=== PATIENT | male | born 1955 | race Caucasian/White ===

== ENCOUNTER → 2016-06-09 | Outpatient (CLI) | payer BC ==
[~2016-06-09] MED LIST: ALPR-411 PO; ASPI81TA28 PO; CHOL100010 PO; CLOP1TAB5 PO; CYAN100T PO; CYCL10TA6 PO; DICL1GEL28 TOP; DOXY100C76 PO; LOSA100T65 PO; LPR25 PO; METF-384 PO; MULT-506 PO; NAPR500T3 PO; NRV/10 PO; NTRGSL/4 UT; OMEG12006 PO; OMEG340C PO; OXYC-57 PO; OXYC1TAB3 PO; TAMS0.4C38 PO; TURM1CAP4 PO; VALA500T60 PO; ZCR40 PO; ZTA10 PO
== END | disposition home or self-care (01) ==
LOC: C.RDSM 10:00
PROVIDERS: ATTEND Physical Medicine & Rehabilitation Sports Medicine
DX: M25.562 Pain in left knee (principal)

== ENCOUNTER → 2016-11-23 | Outpatient (CLI) | payer BC ==
--- NOTE | 2016-11-23 12:21 | DIAGNOSTIC IMAGING REPORT ---
CAROTID ARTERY ULTRASOUND CLINICAL HISTORY: Arteriosclerosis of carotid artery. Status post bilateral carotid and endarterectomies. COMPARISON STUDY: Carotid ultrasound November 18, 2015. TECHNIQUE: Real-time, grayscale, and color Doppler sonography of the carotid and vertebral arteries was performed. Images were viewed in the transverse and longitudinal planes. FINDINGS: There is minimal atherosclerotic plaque. Velocity measurements are listed below. COMMON CAROTID PEAK SYSTOLIC VELOCITY (CM/S): RIGHT 82 LEFT 73 ICA PEAK SYSTOLIC VELOCITY (CM/S): RIGHT 91 LEFT 77 Systolic ratios between the internal to common carotid arteries were normal. Antegrade flow is seen in the vertebral arteries. The external carotid arteries are patent. Blood pressure could not be obtained in this patient. IMPRESSION: No evidence of a hemodynamically significant stenosis. Electronically signed by: Remi Servin M.D. 11/23/2016 12:20 PM Dictated Date/Time: 11/23/2016 12:17 PM
== END | disposition home or self-care (01) ==
LOC: C.ULTRBC 11:22
PROVIDERS: ATTEND Surgery
DX: I65.23 Occlusion and stenosis of bilateral carotid arteries (principal)

== ENCOUNTER 2017-10-04 12:48 | Inpatient (IN) | payer BC, OTHER ==
[~2017-10-04] VITALS: Ht 182.9 cm; Wt 109.3 kg
[~2017-10-04 12:48] MED LIST changes: +NAPR-1231 PO; -NAPR500T3 PO; +OXYC-737 PO; -OXYC1TAB3 PO
[2017-10-04] MEDS ORDERED: SODIUM CHLORIDE 0.9% 500ML 500 ML IV STA (12:59)
[2017-10-04] MEDS ORDERED: ASPIRIN 81 MG CHEW PO STA (12:59)
--- NOTE | 2017-10-04 13:18 | DIAGNOSTIC IMAGING REPORT ---
CHEST ONE VIEW PORTABLE CLINICAL HISTORY: Atypical chest pain COMPARISON STUDY: 04/02/2015 FINDINGS: The heart is borderline enlarged. There are postsurgical changes of midline sternotomy and valvular replacement. There is no failure. There is no focal pulmonary consolidation. There are no pleural effusions.[ IMPRESSION: No active disease in the chest. Electronically signed by: Aurelio Easley M.D. 10/04/2017 1:16 PM Dictated Date/Time: 10/04/2017 1:16 PM
[2017-10-04 14:33] LABS: BASO % 0.4 %; BASO ABS # 0.03 K/uL (0-0.2); EOS % 1.7 %; EOS ABS # 0.12 K/uL (0-0.5); HEMATOCRIT 41.2 % (42-52); HEMOGLOBIN 14.2 g/dL (14.0-18.0); IG# 0.01 K/uL (0.00-0.02); LYMPH % 18.1 %; LYMPH ABS # 1.25 K/uL (1.2-3.4); MEAN CELL VOLUME 89.8 fL (80-100); MEAN CORPUSCULAR HEMOGLOBIN 30.9 pg (25-34); MEAN CORPUSCULAR HGB CONC 34.5 g/dl (32-36); MEAN PLATELET VOLUME 9.5 fL (7.4-10.4); MONO % 7.2 %; NEUT % 72.5 %; NEUT ABS # 4.99 K/uL (1.4-6.5); PLATELET COUNT 207 K/uL (130-400); RED CELL DISTRIBUTION WIDTH CV 13.2 % (11.5-14.5)
[2017-10-04 15:06] LABS: CALCIUM 9.6 mg/dl (8.5-10.1); CKMB 5.5 ng/ml (0.5-3.6); CREATININE 1.01 mg/dl (0.60-1.40); POTASSIUM 3.9 mmol/L (3.5-5.1)
[2017-10-04] MEDS ORDERED: DICLOFENAC SOD 0.1% OPH SOLN 2.5 ML BTL PEG PRN (15:45)
[2017-10-04] MEDS ORDERED: ALPRAZOLAM 0.5 MG TAB PO PRN (15:45)
[2017-10-04] MEDS ORDERED: TAMSULOSIN HCL 0.4 MG CAP PO PRN (15:45)
[2017-10-04] MEDS ORDERED: NITROGLYCERIN 0.4 MG SL PER TAB CHARGE UT PRN (15:45)
[2017-10-04] MEDS ORDERED: POLYETHYLENE (MIRALAX) 17 GM PACK PO PRN (15:45)
[2017-10-04] MEDS ORDERED: MAGNESIUM HYDROXIDE SUSP 30 ML UDC PO PRN (15:45)
[2017-10-04] MEDS ORDERED: CYCLOBENZAPRINE HCL 10 MG TAB PO PRN (15:45)
[2017-10-04] MEDS ORDERED: ACETAMINOPHEN 325 MG TAB PO PRN (15:45)
[2017-10-04] MEDS ORDERED: NITROGLYCERIN 0.4 MG SL PER TAB CHARGE SL PRN (15:45)
[2017-10-04] MEDS ORDERED: ONDANSETRON INJ 2 MG/ML 2 ML VIAL IV PRN (15:45)
[2017-10-04] MEDS ORDERED: ALUMINUM/MAGNESIUM/SIMETH (MAALOX MAX) 30 ML UDC PO PRN (15:45)
[2017-10-04 15:46] LABS: PTT PATIENT 25.4 SECONDS (21.0-31.0)
--- NOTE | 2017-10-04 15:58 | History and Physical ---
History & Physical Date of Service Oct 04, 2017. History & Physical admit #[id number]
--- NOTE | 2017-10-04 16:07 | Progress Note ---
Progress Note Date of Service Oct 04, 2017. Progress Note in addition to dictated H&P paroxysmal afib - sinus now. no chronic anticoagulation - ?contraindicated -- if not would strongly consider given risks. cardiology follows chronically - will defer to their expertise, but definitely would want to consider
[2017-10-04] MEDS ORDERED: GLUCOSE 40% GEL 15 GM TUBE PO PRN (16:15)
[2017-10-04] MEDS ORDERED: DEXTROSE 50% 50 ML SYR IV PRN (16:15)
[2017-10-04] MEDS ORDERED: GLUCOSE 10 TABS/TUBE PO PRN (16:15)
[2017-10-04] MEDS ORDERED: GLUCAGON FOR INJ 1 MG VIAL IM PRN (16:15)
[2017-10-04] MEDS ORDERED: CARBOHYDRATES FOR HYPOGLYCEMIA PO PRN (16:15)
--- NOTE | 2017-10-04 16:45 | HISTORY & PHYSICAL EXAMINATION ---
DATE OF ADMISSION: 10/04/2017 PATIENT #: [id number] CHIEF COMPLAINT: Chest pain. HISTORY OF PRESENT ILLNESS: History is obtained from the patient as well as from Dr. Arellano, his three knife trimmer who saw him earlier today and sent him over. The patient has apparently a longstanding history of vascular disease including coronary artery disease with stenting who noted last night he had chest pain. He actually was due in today for just a routine cardiology followup, but noted last week while he was playing tennis he had a degree of unexpected dyspnea on exertion. Dyspnea resolved within a minute or so; however, was definitely at a lower level of activity than normal. He had not noted any significant change in overall exercise tolerance however. Last night at rest, he had about a 1-hour episode of upper retrosternal chest tightness that had resolved and has since resolved and has not come back. He took alprazolam and sublingual nitro, but then he fell asleep and had no further chest tightness. Initially, the patient wondered if his dyspnea on exertion had something to do with his CPAP mask not working right but he got a new mask and the dyspnea was still there. Again, most importantly his symptoms have resolved since last night. REVIEW OF SYSTEMS: Otherwise negative, except for as above. He is under a significant amount of stress right now due to situations with his son and in fact today has concerns about arranging meeting; his son needs to make it to at 7:00 tonight for which the patient was to be the son's ride. PAST MEDICAL HISTORY: Includes diffuse vascular disease including coronary artery disease status post catheterization and stenting, carotid artery disease status post carotid endarterectomy, diabetes, dyslipidemia. He is apparently intolerant TO LIPITOR, although I do not believe Crestor has been tried. Hypertension, herpes simplex, mitral valve disease status post mitral valve repair, paroxysmal atrial fibrillation, vitamin D deficiency, and apparently obstructive sleep apnea. HOME MEDICATIONS: Include alprazolam, amlodipine, aspirin, Plavix, cyclobenzaprine, losartan, metformin, metoprolol, multivitamin, Naprosyn, nitroglycerin, omega 3 fatty acids, Percocet, simvastatin, turmeric, ubiquinol, valacyclovir p.r.n. cold sores, B12, vitamin D, Voltaren gel, and Zetia. PAST SURGICAL HISTORY: Includes mitral valve repair, carotid endarterectomy, cath and stenting, hernia repair. FAMILY HISTORY: Includes cerebrovascular disease. SOCIAL HISTORY: He is a former smoker. No significant alcohol. He is working. ALLERGIES: LISTED NABILA INHIBITORS, NIACIN, PENICILLINS AND Dr. Arellano noted AN INTOLERANCE TO ATORVASTATIN. PHYSICAL EXAMINATION: VITAL SIGNS: Temperature 37.1, pulse 58, respiratory rate 20, blood pressure 152/93, and 98% on room air. GENERAL: He is awake, alert, oriented x3, pleasant, appears mildly anxious, but otherwise in no acute distress. HEENT: Normocephalic, atraumatic. Mucous membranes are moist. CARDIOVASCULAR: Regular without rubs, murmurs, or gallops. LUNGS: Clear to auscultation bilaterally. No rales, rhonchi, or wheezes. Good effort. ABDOMEN: Soft, nondistended, nontender, no masses or organomegaly. EXTREMITIES: Without cyanosis, clubbing or edema. No calf tenderness. SKIN: Shows no rashes, no pallor or icterus. NEUROLOGIC: Shows cranial nerves II-XII to be grossly intact. Gross motor and sensory intact. MUSCULOSKELETAL: Yields no gross lesions. MENTAL STATUS: Shows good recent and remote recall. Normal mood, although slightly anxious but appears appropriate to the situation. Good judgment and insight. LABS AND DIAGNOSTICS: His EKG shows some pretty significant flipped Ts with a degree of ST depression anteriorly and over to laterally. His chest x-ray shows no active disease. D-dimer of 340. CBC with a white count of 6.9, hemoglobin 14.2, platelets 207. Basic metabolic panel with sodium 138, potassium 3.9, chloride 103, CO2 29, BUN 16, creatinine 1.01, calcium 9.6, glucose 134. CK total of 110 with an MB of 5.5, ratio of 5.0 and a troponin of 0.822. ASSESSMENT AND PLAN: 1. Non-ST elevation myocardial infarction. It appears that this probably happened last night. He is currently symptom free; however, he does have EKG changes and an elevated troponin. We will be admitting him to telemetry with cardiology consult in anticipation of a heart catheterization tomorrow, today urgently if his chest pain returns and have him on a heparin drip, nitro paste, and his home meds which include dual antiplatelets and again anticipate heart catheterization in the a.m. 2. Coronary artery disease. I agree with Dr. Arellano that consideration for switching his simvastatin to rosuvastatin should be undertaken. We will go ahead and do this given that rosuvastatin has better evidence of plaque stabilization and the patient is in the acute setting of an MD. We will check a lipid panel in the morning and follow. In addition to this, would discontinue his anti-inflammatories outside of the Voltaren gel given the concern on inability for vasodilation with prostaglandin inhibition as related to NSAID use, probably have him take Tylenol Arthritis instead as well as the topicals and then continue to titrate his home medications otherwise as appropriate. 3. Stress and anxiety. Continue his home meds in regards to his concern as acute stressor in concern of his son. His cell phone was in his car across the street and given that stress increase the sympathetic output would increase strain on his heart. With his permission, I ran across the street and got his phone thereby alleviating a decent amount of the stress. 4. Carotid artery disease. He is status post endarterectomy. The treatments for his coronary disease will help with this as well. 5. Dyslipidemia, see above. We will check a lipid panel and change him over to Crestor 20, titrate as needed. 6. Type 2 diabetes. We will be holding his metformin in anticipation of the heart catheterization. We will utilize fingersticks supplemental insulin. Check an A1c. Of note, his last A1c was 6.7 in March. 7. Osteoarthritis. See above. Will discontinue his Naprosyn and utilize Tylenol and Voltaren gel instead. 8. Deep venous thrombosis prophylaxis; for now will be anticoagulated on heparin drip. 9. Vitamin D deficiency. The last levels I have on record over several years ago. This probably is followed by his PCP and they bring this up to bring it to attention in case he is due for followup on this as an outpatient. TIANA
[2017-10-04] MEDS ORDERED: HEPARIN SOD (PORCINE) 1000 UNIT/ML 10 ML VIAL ONE (17:03)
[2017-10-04] MEDS ORDERED: HEPARIN SOD 5000 UNIT/0.5 ML CARP ONE (17:06)
[2017-10-04] MEDS: HEPARIN 25,000 UNIT/500ML D5W 500 ML IV SCH (17:21)
[2017-10-04 18:00] VITALS: BP 147/95; PULSE 59; TEMP 36.9; O2SAT 99; Ht 182.9 cm; Wt 109.3 kg
--- NOTE | 2017-10-04 18:00 | EMERGENCY ROOM VISIT NOTE ---
History Report prepared by Beatriz: Sheridan Sheriff Under the Supervision of: Dr. Chad Valadez D.O. First contact with patient: 12:49 Stated Complaint: CARDIAC EVAL History of Present Illness The patient is a 62 year old male who presents to the Emergency Room with complaints of sudden chest pain that occurred last night. He described the chest pain as tightness in his chest, "like when you need to burp but can't". He noted that he took a Xanax and nitroglycerin for his chest pain last night. He stated that the nitroglycerin did help reduce his pain, and he went to sleep soon after. The patient states that he had a biannual check up with his motion picture critic today, who was worried about the patient's symptoms and the changes in an EKG conducted at the clinic. The patient noted that he is not currently in pain, but has noticed an increase in shortness of breath over the past week while playing tennis. He noted that he takes a baby aspirin every morning and Plavix. The patient denies arm pain, jaw pain, nausea, vomiting, current shortness of breath, pain with breathing, calf swelling, coughing up blood, and recent travel. The patient denies history of blood clots. Source of History: patient Onset: last night Position: chest Quality: other (tightness) Timing: other (episode) Modifying Factors (Worsening): other (Nitroglycerin) Associated Symptoms: No SOB, No nausea, No vomiting Note: The patient denies arm pain, jaw pain, pain with breathing, calf swelling, and coughing up blood. Review of Systems See HPI for pertinent positives & negatives. A total of 10 systems reviewed and were otherwise negative. Past Medical & Surgical Medical Problems: (1) Ac Myocardial Infarct,Unspec Site,Subseq Episode (2) Anxiety State Nos (3) Calculus of ureter (4) Cardiac Murmurs Nec (5) Carotid Artery Occlusion W O Cerebral Infarction (6) Carotid stenosis, right (7) Diab Jennifer Wo Compl, Type Ii Or Unspec Type, Not Uncntrld (8) Hypertension Nos (9) NSTEMI (non-ST elevated myocardial infarction) (10) Type 2 diabetes mellitus Surgical Problems: (1) H/O mitral valve repair (2) S/P right coronary artery (RCA) stent placement Family History Cancer Heart disease Hypertension Social History Smoking Status: Former Smoker Marital Status: Housing Status: lives with significant other Occupation Status: retired Current/Historical Medications Scheduled Amlodipine Besylate (Amlodipine Besylate), 10 MG PO QAM Aspirin (Aspirin Ec), 81 MG PO QAM Cholecalciferol (Vitamin D), 1,000 INTER.UNIT PO QAM Clopidogrel Bisulfate (Plavix), 75 MG PO QPM Cyanocobalamin (Vitamin B-12), 100 MCG PO QAM Ezetimibe (Zetia), 10 MG PO QPM Losartan Potassium (Cozaar), 100 MG PO QAM Metformin Hcl (Glucophage), 1,000 MG PO BID Metoprolol Tartrate (Lopressor), 25 MG PO BID Multivitamin (Multivitamin), 1 TAB PO BID Dunlow-3 Fatty Acids (Dunlow 3), 1 CAP PO QAM Dunlow-3 Fatty Acids (Dunlow 3), 2 CAP PO QPM Simvastatin (Simvastatin), 40 MG PO QPM Turmeric (Curcuma Longa) (Turmeric), 500 MG PO BID Scheduled PRN Alprazolam (Alprazolam), 0.5 MG PO BID PRN for Anxiety Cyclobenzaprine Hcl (Flexeril), 10 MG PO BID PRN for spasm Diclofenac Sod (Voltaren 1% Top Gel), 1 APPLN TOP BID PRN for Joint Pain Nitroglycerin (Nitrostat), 0.4 MG UT UD PRN for Chest Pain Oxycodone/Acetaminophen 5MG/325MG (Percocet 5MG/325MG), 1 TABLET PO UD PRN for Pain Tamsulosin Hcl (Flomax), 0.4 MG PO HS PRN for PRN Valacyclovir (Valtrex), 2,000 MG PO Q12 PRN for PRN Allergies Coded Allergies: NABILA Inhibitors (Unverified Allergy, Unknown, PT NOT AWARE OF ALLERGY-FROM MEDICAL RECORS, 10/04/17) Penicillins (Verified Allergy, Unknown, A CHILD, 10/04/17) Niacin (Unverified Adverse Reaction, Unknown, NEEDLES AND PINS ALL OVER, ) Physical Exam Vital Signs Date Time Temp Pulse Resp B/P (MAP) Pulse Ox O2 Delivery O2 Flow Rate FiO2 10/04/17 17:26 55 20 152/75 99 Room Air 10/04/17 15:32 60 16 142/116 Room Air 10/04/17 15:01 58 15 144/105 Room Air 10/04/17 15:01 59 10/04/17 14:46 58 16 161/99 Room Air 10/04/17 14:31 56 12 161/99 Room Air 10/04/17 13:03 57 10/04/17 13:01 58 14 140/87 Room Air 10/04/17 13:00 37.1 58 20 152/93 98 Room Air Physical Exam GENERAL: Sitting up in bed, alert, well appearing, well nourished, no distress, non-toxic EYE EXAM: normal conjunctiva. OROPHARYNX: no exudate, no erythema, lips, buccal mucosa, and tongue normal and mucous membranes are moist NECK: supple, no nuchal rigidity, no adenopathy, non-tender LUNGS: Clear to auscultation. Normal chest wall mechanics HEART: no murmurs, S1 normal and S2 normal ABDOMEN: abdomen soft, non-tender, normo-active bowel sounds, no masses, no rebound or guarding. BACK: Back is symmetrical on inspection and there is no deformity, no midline tenderness, no CVA tenderness. SKIN: no rashes and no bruising UPPER EXTREMITIES: upper extremities are grossly normal. LOWER EXTREMITIES: No pitting edema. NEURO EXAM: Normal sensorium, cranial nerves II-XII grossly intact, normal speech, no gross weakness of arms, no gross weakness of legs. Medical Decision & Procedures ER Provider Diagnostic Interpretation: Radiology results as stated below per my review and the radiologist's interpretation: CHEST ONE VIEW PORTABLE CLINICAL HISTORY: Atypical chest pain COMPARISON STUDY: 04/02/2015 FINDINGS: The heart is borderline enlarged. There are postsurgical changes of midline sternotomy and valvular replacement. There is no failure. There is no focal pulmonary consolidation. There are no pleural effusions.[ IMPRESSION: No active disease in the chest. Electronically signed by: Aurelio Easley M.D. 10/04/2017 1:16 PM Dictated Date/Time: 10/04/2017 1:16 PM Laboratory Results 10/04/17 14:08 Red Blood Count 4.59, Mean Corpuscular Volume 89.8, Mean Corpuscular Hemoglobin 30.9, Mean Corpuscular Hemoglobin Concent 34.5, Mean Platelet Volume 9.5, Neutrophils (%) (Auto) 72.5, Lymphocytes (%) (Auto) 18.1, Monocytes (%) (Auto) 7.2, Eosinophils (%) (Auto) 1.7, Basophils (%) (Auto) 0.4, Neutrophils # (Auto) 4.99, Lymphocytes # (Auto) 1.25, Monocytes # (Auto) 0.50, Eosinophils # (Auto) 0.12, Basophils # (Auto) 0.03 10/04/17 14:08 Test 10/04/17 14:08 White Blood Count 6.90 K/uL (4.8-10.8) Red Blood Count 4.59 M/uL (4.7-6.1) Hemoglobin 14.2 g/dL (14.0-18.0) Hematocrit 41.2 % (42-52) Mean Corpuscular Volume 89.8 fL (80-100) Mean Corpuscular Hemoglobin 30.9 pg (25-34) Mean Corpuscular Hemoglobin Concent 34.5 g/dl (32-36) Platelet Count 207 K/uL (130-400) Mean Platelet Volume 9.5 fL (7.4-10.4) Neutrophils (%) (Auto) 72.5 % Lymphocytes (%) (Auto) 18.1 % Monocytes (%) (Auto) 7.2 % Eosinophils (%) (Auto) 1.7 % Basophils (%) (Auto) 0.4 % Neutrophils # (Auto) 4.99 K/uL (1.4-6.5) Lymphocytes # (Auto) 1.25 K/uL (1.2-3.4) Monocytes # (Auto) 0.50 K/uL (0.11-0.59) Eosinophils # (Auto) 0.12 K/uL (0-0.5) Basophils # (Auto) 0.03 K/uL (0-0.2) RDW Standard Deviation 43.0 fL (36.4-46.3) RDW Coefficient of Variation 13.2 % (11.5-14.5) Immature Granulocyte % (Auto) 0.1 % Immature Granulocyte # (Auto) 0.01 K/uL (0.00-0.02) Prothrombin Time 10.7 SECONDS (9.0-12.0) Prothromb Time International Ratio 1.0 (0.9-1.1) Activated Partial Thromboplast Time 25.4 SECONDS (21.0-31.0) Partial Thromboplastin Ratio 1.0 D-Dimer 340 ug/L FEU (0-500) Anion Gap 6.0 mmol/L (3-11) Est Creatinine Clear Calc Drug Dose 94.5 ml/min Estimated GFR () 90.7 Estimated GFR (Non- 78.2 BUN/Creatinine Ratio 15.4 (10-20) Calcium Level 9.6 mg/dl (8.5-10.1) Total Creatine Kinase 110 U/L (39-308) Creatine Kinase MB 5.5 ng/ml (0.5-3.6) Creatine Kinase MB Ratio 5.0 (0-3.0) Troponin I 0.822 ng/ml (0-0.045) Laboratory results per my review. Medications Administered Medications (Trade) Dose Ordered Sig/Portia Route Start Time Stop Time Status Last Admin Dose Admin Sodium Chloride 500 ml @ 999 mls/hr Q31M STAT IV 10/04/17 12:59 10/04/17 13:29 DC 10/04/17 14:10 999 MLS/HR Aspirin (Aspirin Chew) 324 mg NOW STAT PO 10/04/17 12:59 10/04/17 13:00 DC 10/04/17 13:20 324 MG Heparin Sodium/ Dextrose 500 ml @ 33 mls/hr [id number] IV 10/04/17 16:30 11/03/17 16:29 10/04/17 17:21 33 MLS/HR Heparin Sodium (Porcine) (Heparin Sq 5000 Unit/0.5ml) 10,000 unit STK-MED ONCE .ROUTE 10/04/17 17:06 10/04/17 17:07 DC 10/04/17 17:22 7,000 UNIT ECG Per My Interpretation Indication: chest pain Rate (beats per minute): 60 Rhythm: sinus rhythm Findings: ST depression (anterior and lateral), T-wave inversion (Septal, anterior, and lateral) Comparison ECG Date: 07/18/2014 Change: Flipped T waves and ST depressions are new. ED Course ED COURSE: Vital signs were reviewed and showed bradycardia and situational hypertension. The patients medical record was reviewed The above diagnostic studies were performed and reviewed. ED treatments and interventions as stated above. 1249: The patient was evaluated in room C10. A complete history and physical examination was performed. 1512: I reevaluated the patient. He has no bleeding risk factors. I have started him on a Heparin drip. 1518: Ordered Heparin Sodium (Porcine) 4,000 unit IV, Heparin IV Bolus. Heparin drip was started afterwards. 1519: Upon reevaluation, the patient is resting comfortably. I discussed my findings with the patient and he understands and agrees with the treatment plan. Based on the patients age, coexisting illnesses, exam and lab findings the decision to treat as an inpatient was made. The patient remained stable while under my care. The patient will be evaluated for further management. 1530: I reviewed the patient's case with Dr. Balbina Glass [facility]. He will evaluate the patient for further management. Medical Decision Differential diagnoses includes but is not limited to acute coronary syndrome, myocardial infarction, pericarditis, pulmonary embolus, aortic dissection, pneumonia, pneumothorax, musculoskeletal, shingles, esophageal. Patient is a 62-year-old male that presents the ER for chest pain which occurred last night. Patient was referred in by cardiology for EKG changes. On my evaluation EKG showed flipped T waves with mild ST depressions. Patient was completely pain-free since last night. CBC along with BMP was unremarkable. Troponin was elevated at 0.8. Patient does take Plavix. Patient was given a heparin bolus and placed on a heparin drip. Patient had no bleeding risk factors including no previous brain bleeds, hemoptysis, blood in stool, blood in urine, or recent trauma/surgery. Patient was updated. I did discuss case with the on-call customer program specialist. He will cath him tomorrow morning at 8 AM. Discussed with internal medicine. Patient was monitored closely admitted to internal medicine for an NSTEMI. Medication Reconcilliation Current Medication List: was personally reviewed by me Blood Pressure Screening Patient's blood pressure: Elevated blood pressure Blood pressure disposition: Elevated BP felt to be situational Consults Time Called: 1520 Consulting Physician: Dr. Balbina Glass [facility] Returned Call: 1530 I reviewed the patient's case with Dr. Balbina Glass [facility]. He will evaluate the patient for further management. Impression Primary Impression: NSTEMI (non-ST elevated myocardial infarction) Critical Care I have personally spent 35 minutes of critical care time in the direct management of this patient. This includes bedside care, interpretation of diagnostic studies, and testing, discussion with consultants, patient, and family members, and other required patient management activities. This 35 minutes is in excess of all separately billable procedures. Scribe Attestation The scribe's documentation has been prepared under my direction and personally reviewed by me in its entirety. I confirm that the note above accurately reflects all work, treatment, procedures, and medical decision making performed by me. Departure Information Dispostion Being Evaluated By Hospitalist Referrals Rohan Prakash M.D. (PCP) Forms IMPORTANT VISIT INFORMATION
[2017-10-04] MEDS: INSULIN ASPART 100 UNITS/ML 3 ML PEN SC SCH ×2 (18:30→22:15)
[2017-10-04 19:48] VITALS: BP 154/96; PULSE 64; TEMP 36.7; O2SAT 98
[2017-10-04] MEDS: NITROGLYCERIN 2% OINTMENT 30GM TUBE EXT SCH (20:43)
[2017-10-04] MEDS ORDERED: SIMVASTATIN 40 MG TAB PO SCH (21:00)
[2017-10-04] MEDS ORDERED: TURMERIC 500 MG PO SCH (21:00)
[2017-10-04 21:16] VITALS: BP 135/80; PULSE 60
[2017-10-04] MEDS: OMEGA-3 (PURIFIED FISH OIL) 1 GM CAP PO SCH (22:09)
[2017-10-04] MEDS: CLOPIDOGREL BISULFATE 75 MG TAB PO SCH (22:10)
[2017-10-04] MEDS: EZETIMIBE 10MG TAB PO SCH (22:10)
[2017-10-04] MEDS: METOPROLOL TARTRATE 25 MG TAB PO SCH (22:10)
[2017-10-04] MEDS: ROSUVASTATIN CALCIUM 20 MG TAB PO SCH (22:11)
[2017-10-04] MEDS: MULTIVITAMIN TAB PO SCH (22:15)
[2017-10-04] MEDS ORDERED: NURSING VERBAL MED ORDER ONE (23:30)
[2017-10-04 23:50] LABS: PTT PATIENT 58.4 SECONDS (21.0-31.0)
[2017-10-04 23:52] VITALS: BP 118/68; PULSE 51; TEMP 36.9; O2SAT 96
[2017-10-05] VITALS (16 sets, daily range): BP systolic 108–151; BP diastolic 59–93; PULSE 48–62; TEMP 36.4–36.9; O2SAT 95–98
[2017-10-05] MEDS: NITROGLYCERIN 2% OINTMENT 30GM TUBE EXT SCH ×2 (00:11→06:25)
[2017-10-05 04:24] LABS: PTT PATIENT 56.6 SECONDS (21.0-31.0)
[2017-10-05 06:35] LABS: HEMOGLOBIN A1C 7.6 % (4.5-5.6)
[2017-10-05] MEDS: ASPIRIN 81 MG ECTAB PO SCH (07:33)
[2017-10-05] MEDS: CHOLECALCIFEROL 1000 INTER.UNIT TAB PO SCH (07:33)
[2017-10-05] MEDS: CYANOCOBALAMIN 100 MCG TAB (VIT B-12) PO SCH (07:33)
[2017-10-05] MEDS: AMLODIPINE BESYLATE 5 MG TAB PO SCH (07:34)
[2017-10-05] MEDS: METOPROLOL TARTRATE 25 MG TAB PO SCH ×2 (07:34→20:43)
[2017-10-05] MEDS: OMEGA-3 (PURIFIED FISH OIL) 1 GM CAP PO SCH ×2 (07:34→20:44)
[2017-10-05] MEDS: MULTIVITAMIN TAB PO SCH ×2 (07:34→20:43)
[2017-10-05] MEDS: INSULIN ASPART 100 UNITS/ML 3 ML PEN SC SCH ×4 (07:35→20:44)
[2017-10-05] MEDS: HEPARIN 25,000 UNIT/500ML D5W 500 ML IV SCH (07:39)
[2017-10-05] MEDS ORDERED: MIDAZOLAM HCL 1 MG/ML 2ML VIAL ONE (07:50)
[2017-10-05] MEDS ORDERED: NiCARDipine HCL INJ 2.5 MG/ML 10 ML AMP ONE (07:50)
[2017-10-05] MEDS ORDERED: FENTANYL CITRATE INJ 50 MCG/1 ML 2 ML VIAL ONE (07:50)
[2017-10-05] MEDS ORDERED: HEPARIN SOD (PORCINE) 1000 UNIT/ML 10 ML VIAL ONE ×2 (07:50→09:06)
[2017-10-05] MEDS ORDERED: NITROGLYCERIN/D5W 100MCG/ML 20ML SYR ONE (07:51)
--- NOTE | 2017-10-05 08:03 | Cardiology Follow-Up ---
Subjective Subjective Date of Service: Oct 05, 2017. Pt evaluation today including: conversation w/ patient, physical exam, chart review, lab review, review of studies, review of inpatient medication list Additional Details: No recurrent chest pain overnight. No other new complaints. Review of Systems Constitutional: No fever Respiratory: No cough Cardiac: No chest pain Abdomen: No pain, No nausea Heme: No abnormal bleeding/bruising Skin: No rash Objective Vital Signs Last Vital Signs Documentation Date Time Temp Pulse Resp B/P (MAP) Pulse Ox O2 Delivery O2 Flow Rate FiO2 10/05/17 07:43 62 10/05/17 07:02 36.4 18 135/79 (97) 97 CPAP Physical Exam: General Appearance: no apparent distress ENT: normal ENT inspection Neck: supple, no JVD Respiratory/Chest: chest non-tender, lungs clear, normal breath sounds Cardiovascular: regular rate, rhythm, no edema, no gallop Abdomen: normal bowel sounds, soft Extremities: no pedal edema Neurologic/Psychiatric: alert, normal mood/affect Skin: normal color, warm/dry Assessment and Plan 1. NSTEMI 2. CAD s/p PCI with DESx2 to RCA 2009 3. DM2 4. Dyslipidemia with statin intolerance. 5. Preserved LV function, well-functioning mitral valve repair 6. Hypertension. 7. Carotid artery disease Plan to proceed with cardiac catheterization via right radial artery this morning. Further recs pending findings. Medications: Current Inpatient Medications Medications (Trade) Dose Ordered Sig/Portia Route Start Time Stop Time Status Last Admin Dose Admin Acetaminophen (Tylenol Tab) 650 mg Q4H PRN PO 10/04/17 15:45 11/03/17 15:44 Al Hydrox/Mg Hydrox/Simethicone (Maalox Max Susp) 15 ml Q4H PRN PO 10/04/17 15:45 11/03/17 15:44 Magnesium Hydroxide (Milk Of Magnesia Susp) 30 ml Q12H PRN PO 10/04/17 15:45 11/03/17 15:44 Ondansetron HCl (Zofran Inj) 4 mg Q6H PRN IV 10/04/17 15:45 11/03/17 15:44 Nitroglycerin (Nitrostat Tab) 0.4 mg UD PRN SL 10/04/17 15:45 11/03/17 15:44 Nitroglycerin (Nitroglycerin 2% Oint) 1 inch Q6H EXT 10/04/17 18:00 11/03/17 15:44 10/05/17 06:25 1 INCH Polyethylene (Miralax Powder Packet) 17 gm DAILY PRN PO 10/04/17 15:45 11/03/17 15:44 Alprazolam (Xanax Tab) 0.5 mg BID PRN PO 10/04/17 15:45 11/03/17 15:44 Aspirin (Ecotrin Tab) 81 mg QAM PO 10/05/17 09:00 11/04/17 08:59 10/05/17 07:33 81 MG Cholecalciferol (Vitamin D Tab) 1,000 inter.unit QAM PO 10/05/17 09:00 11/04/17 08:59 10/05/17 07:33 1,000 INTER.UNIT Clopidogrel Bisulfate (plAVix TAB) 75 mg QPM PO 10/04/17 21:00 11/03/17 20:59 10/04/17 22:10 75 MG Cyclobenzaprine HCl (Flexeril Tab) 10 mg BID PRN PO 10/04/17 15:45 11/03/17 15:44 EZETIMIBE (Zetia Tab) 10 mg QPM PO 10/04/17 21:00 11/03/17 20:59 10/04/17 22:10 10 MG Metoprolol Tartrate (Lopressor Tab) 25 mg BID PO 10/04/17 21:00 11/03/17 20:59 10/05/17 07:34 25 MG Multivitamins (Multivitamin Tab) 1 tab BID PO 10/04/17 21:00 11/03/17 20:59 10/05/17 07:34 1 TAB Oxycodone/ Acetaminophen (Percocet 5-325mg Tab) 1 tab QID PRN PO 10/04/17 15:45 10/18/17 15:44 Tamsulosin HCl (Flomax Cap) 0.4 mg HS PRN PO 10/04/17 15:45 11/03/17 15:44 Amlodipine Besylate (Norvasc Tab) 10 mg QAM PO 10/05/17 09:00 11/04/17 08:59 10/05/17 07:34 10 MG Cyanocobalamin (Vitamin B-12 Tab) 100 mcg DAILY PO 10/05/17 09:00 11/04/17 08:59 10/05/17 07:33 100 MCG Fish Oil ([place]-3 (Purified Fish Oil) Cap) 1 gm QAM PO 10/05/17 09:00 11/04/17 08:59 10/05/17 07:34 1 GM Fish Oil ([place]-3 (Purified Fish Oil) Cap) 2 gm QPM PO 10/04/17 21:00 11/03/17 20:59 10/04/17 22:09 2 GM Diclofenac Sodium (Voltaren 1% Top Gel) 1 appln QID PRN EXT 10/04/17 16:00 11/03/17 15:59 Rosuvastatin Calcium (Crestor Tab) 20 mg QPM PO 10/04/17 21:00 11/03/17 20:59 10/04/17 22:11 20 MG Insulin Aspart (novoLOG ASPART) SLIDING SCALE G... ACHS SC 10/04/17 18:30 11/03/17 18:29 10/04/17 22:15 1 UNITS Glucose (Glucose 40% Gel) 15-30 GRAMS 15 GRAMS... UD PRN PO 10/04/17 16:15 11/03/17 16:14 Glucose (Glucose Chew Tab) 4-8 Tablets 4 Tabl... UD PRN PO 10/04/17 16:15 11/03/17 16:14 Dextrose (Dextrose 50% 50ML Syringe) 25-50ML 25ML FOR ... UD PRN IV 10/04/17 16:15 11/03/17 16:14 Glucagon (Glucagon Inj) 1 mg UD PRN IM 10/04/17 16:15 11/03/17 16:14 Carbohydrates (Carbohydrates For Hypoglycemia) 15-30 GRAMS 15 grams if BSG 54-69... UD PRN PO 10/04/17 16:15 11/03/17 16:14 Heparin Sodium/ Dextrose 500 ml @ 33 mls/hr [id number] IV 10/04/17 16:30 11/03/17 16:29 10/05/17 07:39 33 MLS/HR Lab Results: 10/04/17 14:08 Red Blood Count 4.59, Mean Corpuscular Volume 89.8, Mean Corpuscular Hemoglobin 30.9, Mean Corpuscular Hemoglobin Concent 34.5, Mean Platelet Volume 9.5, Neutrophils (%) (Auto) 72.5, Lymphocytes (%) (Auto) 18.1, Monocytes (%) (Auto) 7.2, Eosinophils (%) (Auto) 1.7, Basophils (%) (Auto) 0.4, Neutrophils # (Auto) 4.99, Lymphocytes # (Auto) 1.25, Monocytes # (Auto) 0.50, Eosinophils # (Auto) 0.12, Basophils # (Auto) 0.03 10/04/17 14:08 Test 10/04/17 14:08 10/05/17 03:53 10/05/17 07:32 White Blood Count 6.90 K/uL (4.8-10.8) Red Blood Count 4.59 M/uL (4.7-6.1) Hemoglobin 14.2 g/dL (14.0-18.0) Hematocrit 41.2 % (42-52) Mean Corpuscular Volume 89.8 fL (80-100) Mean Corpuscular Hemoglobin 30.9 pg (25-34) Mean Corpuscular Hemoglobin Concent 34.5 g/dl (32-36) Platelet Count 207 K/uL (130-400) Mean Platelet Volume 9.5 fL (7.4-10.4) Neutrophils (%) (Auto) 72.5 % Lymphocytes (%) (Auto) 18.1 % Monocytes (%) (Auto) 7.2 % Eosinophils (%) (Auto) 1.7 % Basophils (%) (Auto) 0.4 % Neutrophils # (Auto) 4.99 K/uL (1.4-6.5) Lymphocytes # (Auto) 1.25 K/uL (1.2-3.4) Monocytes # (Auto) 0.50 K/uL (0.11-0.59) Eosinophils # (Auto) 0.12 K/uL (0-0.5) Basophils # (Auto) 0.03 K/uL (0-0.2) RDW Standard Deviation 43.0 fL (36.4-46.3) RDW Coefficient of Variation 13.2 % (11.5-14.5) Immature Granulocyte % (Auto) 0.1 % Immature Granulocyte # (Auto) 0.01 K/uL (0.00-0.02) Prothrombin Time 10.7 SECONDS (9.0-12.0) Prothromb Time International Ratio 1.0 (0.9-1.1) D-Dimer 340 ug/L FEU (0-500) Anion Gap 6.0 mmol/L (3-11) Est Creatinine Clear Calc Drug Dose 94.5 ml/min Estimated GFR () 90.7 Estimated GFR (Non- 78.2 BUN/Creatinine Ratio 15.4 (10-20) Estimated Average Glucose 171 mg/dl Hemoglobin A1c 7.6 % (4.5-5.6) Calcium Level 9.6 mg/dl (8.5-10.1) Total Creatine Kinase 110 U/L (39-308) Creatine Kinase MB 5.5 ng/ml (0.5-3.6) Creatine Kinase MB Ratio 5.0 (0-3.0) Activated Partial Thromboplast Time 56.6 SECONDS (21.0-31.0) Partial Thromboplastin Ratio 2.2 Troponin I 0.883 ng/ml (0-0.045) Triglycerides Level 89 mg/dl (0-150) Cholesterol Level 98 mg/dl (0-200) HDL Cholesterol 34 mg/dl LDL Cholesterol, Calculated 46 mg/dl VLDL Cholesterol, Calculated 18 mg/dl Cholesterol/HDL Ratio 2.9 Bedside Glucose 161 mg/dl (70-99)
[2017-10-05] MEDS ORDERED: CLOPIDOGREL BISULFATE 300 MG TAB PO ONE (09:16)
--- NOTE | 2017-10-05 09:19 | Pre Sedation Assessment ---
Pre Sedation Assessment General Date of Sedation: Oct 05, 2017. Vital Signs Past 12 Hours Date Time Temp Pulse Resp B/P (MAP) Pulse Ox O2 Delivery O2 Flow Rate FiO2 10/05/17 08:00 Room Air 10/05/17 07:43 62 10/05/17 07:02 36.4 51 18 135/79 (97) 97 CPAP 10/05/17 03:38 36.5 51 18 108/66 (80) 98 Room Air 10/04/17 23:52 36.9 51 15 118/68 (85) 96 Room Air Review Cardiovascular: regular rate, rhythm, no edema Lungs: chest non-tender, lungs clear Pre-Sedation Airway Assessment Smoking Status: Former Smoker Hx of Sleep Apnea: No Hx of difficult intubation: No Short Thick Neck: Yes Thyro-mental Distance: > 3 Finger Breadths Oral Cavity: Dentures Mallampati Classification: Class II ASA Classification: Class II NPO Status Date of Last Intake of Fluids: Oct 04, 2017 Time of Last Intake of Fluids: 1900 Date of Last Intake of Solids: Oct 04, 2017 Time of Last Intake of Solids: 1899 Procedure Planning Contraindications for Sedation: None Current Medications Reviewed: Yes Notes The planned sedation has been discussed with the patient. Informed Consent was obtained. I have identified the patient, determined the appropriateness of sedation and have assessed the patient immediately prior to the procedure. All medicine(s) and interventions are by my order.
--- NOTE | 2017-10-05 09:19 | Post Sedation Assessment ---
Post Sedation Assessment General Date of Sedation Oct 05, 2017. Vital Signs: Vital Signs Past 12 Hours Date Time Temp Pulse Resp B/P (MAP) Pulse Ox O2 Delivery O2 Flow Rate FiO2 10/05/17 08:00 Room Air 10/05/17 07:43 62 10/05/17 07:02 36.4 51 18 135/79 (97) 97 CPAP 10/05/17 03:38 36.5 51 18 108/66 (80) 98 Room Air 10/04/17 23:52 36.9 51 15 118/68 (85) 96 Room Air Post Procedure Recovery Score Activity: (2) Moves 4 extremities * Respiration: (2) Deep breath/cough Circulation: (2) +/-20% PreAnes Value Consciousness: (2) Fully Awake Oxygen Saturation: (2) > 92% On Room Air Post Anesthesia Score: 10 Discharge Sedation Level of Care: Fast Track Phase II Post Sedation Plan On clinical assessment, the patient appears to have tolerated the sedation without complications. Patient is recovering as anticipated. Patient will continue to be monitored by nursing and may be discharged when sedation discharge criteria are met per below protocol. Upon Completions of procedure and additional 15 minutes continue every 5 minute vital signs and the P.A.R. score; then discharge to a Phase I or Fast Track to Phase II per the following guidelines: * Discharge Patient to appropriate Phase II area if PAR is 8 or greater or return to pre- procedure baseline. The post - procedure orders will be as directed. * If PAR score is less than 8 or not return to pre-procedure baseline then patient will follow Phase I monitoring till PAR is reached for Phase II. The Phase I may be done in procedure room or may call to secure a Phase I area. * If naloxone or flumazenil are used for reversal, hold in Phase I for an additional 60 -120 minutes before discharge to Phase II. Please call the Sedation Physician to re-evaluate and complete post-note for discharge to Phase II area. Do NOT discharge from procedure sedation or Phase 1 until post- sedation evaluation note is complete by procedure /sedation MD Sedation Discharge Instructions to be given to the patient at discharge to home.
--- NOTE | 2017-10-05 09:34 | Cardiac Catheterization ---
Procedure Note Procedure Date Oct 05, 2017. Pre-Procedure Diagnosis Non STEMI AUC Score 8 Post-Procedure Diagnosis Severe CAD, Successful PCI, Normal Intracardiac Pressures Procedure(s) Performed Coronary Angiography, Left Heart Cath, Drug Eluting Stent Teller Coordinator [employer] Receptionist(s) [place] Estimated Blood Loss <15 Medication(s) Clopidogrel, Fentanyl, Heparin, Nicardipine, Nitroglycerin, Versed, Lidocaine 1% Summary of Findings Indication: ACS/High-risk NSTEMI Access: 6Fr right radial artery Catheters: [place], JL3.5; EBU 3.5 guide Findings: LM - 20% mid to distal disease LAD - Large caliber vessel, 95% focal, hazy late-proximal stenosis at bifurcation of 1st diagonal; 30-40% mid segment disease; distal luminal irregularities as wraps around apex. - Large caliber 1st diagonal with 40-50% ostial stenosis. Circumflex - Moderate caliber vessel, gives off large OM1 without significant disease. RCA - Dominant, widely patent proximal and mid segment stents; 30% mid stenosis just distal to proximal stent LVEDP - 15 -- PCI -- Antithrombotic therapy: Heparin, Clopidogrel Procedure: LM cannulated with EBU 3.5 guide BMW wire passed across LAD lesion into distal vessel Prowater wire placed into distal 1st diagonal LAD lesion predilated with 3.0 compliant balloon Ostium of 1st diagonal dilated with 2.5 balloon. Dilated LAD lesion stented with 3.5 x 23 Xience EMMANUEL Diagonal re-wired with environmental science instructor 50 wire Stent post-dilated with 3.75 noncompliant balloon IC vasodilators administered for spasm Post procedure VONNIE 3 flow, stent well expanded with minimal residual stenosis, minimal ostial diagonal stenosis and no apparent cardiac complications. Arterial Closure: TR Band Summary: 1. Severe single vessel coronary artery disease - 95% late-proximal stenosis at bifurcation of 1st diagonal. 2. Borderline intracardiac filling pressure 3. Successful PCI of proximal to mid LAD with single drug-eluting stent (3.5 x 23 Xience; post-dilated with 3.75 NC). 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 Continue dual-antiplatelet therapy for at least 1 year Continue ASCVD risk factor modification Consult cardiac Rehab Hemodynamics Rest Ao: 140/76/102 Final Ao: 124/70/92 LV: 149/15 Recommendations PCI without planned CABG Specimens None Radiation Exposure (mGy) 3959 Contrast (mls) 175 Fluids (cc crystalloids) 113 NSS Drains none Anesthesia moderate Procedural Complication(s) None Disposition PCU ACC Data Cardiac Status Clinical evaluation leading to the procedure CAD Presntation: Non STEMI Anginal Classification: CCS IV Heart Failure: No, NYHA Class: CCS I Cardiogenic Shock w/in 24Hrs: No Cardiac Arrest w/in 24Hrs: No Imaging studies past 6 months: Yes Stress studies past 6 months: No Closure Device Percutaneous Entry Location: Radial Closure Device: Radial Band Recommendations: PCI without planned CABG PCI Indication: PCI for high risk Non-STEMI Lesion Segment Name: proximal LAD Culprit Artery: Yes Stenosis Prior to Rx (%): 95 Chronic Total Occlusion: No IVUS: No FFR: No Pre-Procedure VONNIE Flow: 3 Previously Treated Lesion: No Lesion Complexity: Non-High/Non-C Lesion Length (mm): 18 Thrombus Present: Yes Bifurcation Lesion: Yes Guidewire Across Lesion: Yes Guidewire: Stenosis Post-Procedure (%): 0 Post-Procedure VONNIE Flow: 3 Device(s) Deployed: Yes Intraprocedure Events Significant Dissection: No Perforation: No
[2017-10-05] MEDS ORDERED: SODIUM CHLORIDE 0.9% 1000ML 1,000 ML IV SCH (09:45)
--- NOTE | 2017-10-05 15:22 | ECHOCARDIOGRAM REPORT ---
*NOTICE TO RECEIVING LIBERTARIAN AGENCY This information is strictly Confidential and protected under [place] law. [place] law prohibits you from making any further disclosure of this information unless further disclosure is expressly permitted by the written consent of the person to whom it pertains or is authorized by law. A general authorization for the release of medical or other information is not sufficient for this purpose. Hospital accepts no responsibility if the information is made available to any other person, INCLUDING THE PATIENT. Interpretation Summary * Name: JUN SOTO Study Date: 10/04/2017 03:52 PM BP: 142/116 mmHg * Patient Location: [facility] HR: 66 * : 1955 (M/d/yyyy) Gender: Male Height: 72 in * Age: 62 yrs Ethnicity: [place] Weight: 241 lb * Ordering Physician: Chad Mortensen * Referring Physician: Thai Arellano * Performed By: Zulema Spain RDCS * * Reason For Study: AMI * BSA: 2.3 m2 * -- Conclusions -- * There is mild concentric left ventricular hypertrophy. * Left ventricular systolic function is normal. * There is mild mitral stenosis. * Borderline aortic root dilatation. * Compared to an echocardiogram from 06/2010, there appears to been a mitral valve repair. Procedure Details * A contrast injection of Definity was performed to improve assessment of LV function. * Contrast was injected into an intravenous site in the left arm. * One vial of Definity ultrasound contrast was diluted in normal saline to a total volume of 10 ml. A total of '1' ml of solution was administered during imaging. * Lot # [id number] of Definity utilized for procedure. * Expiration date SEP 23. * The attending nurse who injected the contrast agent was VIJAYA NICOLE. Left Ventricle * The left ventricle is normal in size. * There is mild concentric left ventricular hypertrophy. * Left ventricular systolic function is normal. * Ejection Fraction = 55-60%. * The left ventricular wall motion is normal. Right Ventricle * The right ventricle is normal in size and function. * The right ventricular systolic function is normal as assessed by tricuspid annular plane systolic excursion (TAPSE) (normal >1.5 cm). Atria * The left atrial size is normal. * Right atrial size is normal. Mitral Valve * The mitral valve is grossly normal. * There is mild mitral stenosis. * Significant mitral regurgitation is absent. * An annuloplasty ring is noted in the mitral position. Tricuspid Valve * The tricuspid valve is not well visualized, but is grossly normal. * Significant tricuspid regurgitation is absent. Aortic Valve * The aortic valve is normal in structure and function. * No hemodynamically significant valvular aortic stenosis. * There is no significant aortic regurgitation. Pulmonic Valve * The pulmonic valve is not well visualized. Great Vessels * Borderline aortic root dilatation. Pericardium/Pleural * There is no pericardial effusion. MMode 2D Measurements and Calculations IVSd 1.6 cm IVSs 2.3 cm LVIDd 4.7 cm LVIDs 3.3 cm LVPWd 1.4 cm LVPWs 1.9 cm IVS/LVPW 1.1 FS 30.2 % EDV(Teich) 103.1 ml ESV(Teich) 43.8 ml EF(Teich) 57.5 % EDV(cubed) 104.7 ml ESV(cubed) 35.6 ml EF(cubed) 66.0 % % IVS thick 43.8 % % LVPW thick 36.9 % LV mass(C)d 293.3 grams LV mass(C)dI 127.2 grams/m\S\2 LV mass(C)s 320.2 grams LV mass(C)sI 138.8 grams/m\S\2 SV(Teich) 59.3 ml SI(Teich) 25.7 ml/m\S\2 SV(cubed) 69.2 ml SI(cubed) 30.0 ml/m\S\2 Ao root diam 4.1 cm Ao root area 13.4 cm\S\2 LA dimension 3.7 cm LA/Ao 0.89 LVAd ap4 40.2 cm\S\2 LVLd ap4 9.3 cm EDV(MOD-sp4) 145.2 ml EDV(sp4-el) 147.3 ml LVAs ap4 22.6 cm\S\2 LVLs ap4 7.8 cm ESV(MOD-sp4) 53.5 ml ESV(sp4-el) 55.5 ml EF(MOD-sp4) 63.2 % EF(sp4-el) 62.4 % LVAd ap2 31.9 cm\S\2 LVLd ap2 8.9 cm EDV(MOD-sp2) 90.9 ml EDV(sp2-el) 96.9 ml LVAs ap2 18.8 cm\S\2 LVLs ap2 7.8 cm ESV(MOD-sp2) 39.2 ml ESV(sp2-el) 38.9 ml EF(MOD-sp2) 56.9 % EF(sp2-el) 59.9 % LVLd %diff -4.46 % EDV(MOD-bp) 115.5 ml LVLs %diff -0.85 % ESV(MOD-bp) 45.8 ml EF(MOD-bp) 60.3 % SV(MOD-sp4) 91.7 ml SI(MOD-sp4) 39.8 ml/m\S\2 SV(MOD-sp2) 51.7 ml SI(MOD-sp2) 22.4 ml/m\S\2 SV(MOD-bp) 69.7 ml SI(MOD-bp) 30.2 ml/m\S\2 SV(sp4-el) 91.9 ml SI(sp4-el) 39.8 ml/m\S\2 SV(sp2-el) 58.1 ml SI(sp2-el) 25.2 ml/m\S\2 Doppler Measurements and Calculations MV E max byron 163.9 cm/sec MV A max byrno 148.2 cm/sec MV E/A 1.1 MV dec time 0.48 sec Ao V2 max 113.2 cm/sec Ao max PG 5.1 mmHg Ao max PG (full) 2.1 mmHg LV V1 max PG 3.1 mmHg LV V1 max 87.5 cm/sec
[2017-10-05] MEDS: EZETIMIBE 10MG TAB PO SCH (20:43)
[2017-10-05] MEDS: ROSUVASTATIN CALCIUM 20 MG TAB PO SCH (20:43)
[2017-10-05] MEDS: CLOPIDOGREL BISULFATE 75 MG TAB PO SCH (20:43)
[2017-10-05] MEDS: OXYCODONE/ACETAMINOPHEN 5-325 TAB PO PRN (20:45)
[2017-10-05] MEDS: DICLOFENAC SOD 1% GEL 100 GM TUBE EXT PRN (20:48)
--- NOTE | 2017-10-05 23:08 | Progress Note ---
Subjective Date of Service: Oct 05, 2017. Subjective Pt evaluation today including: conversation w/ patient, physical exam 62 yo male reports feeling well. Patient denies any SOB, chest pain, nausea, vomiting. Review of Systems Constitutional: No fever Eyes: No worsening of vision ENT: No hearing loss Respiratory: No cough Cardiac: No chest pain, No orthopnea Abdomen: No pain Musculoskeletal: No joint pain Neurologic: No memory loss Heme: No abnormal bleeding/bruising Endo: No fatigue Skin: No rash All Other Systems: Reviewed and Negative Objective Vital Signs Date Time Temp Pulse Resp B/P (MAP) Pulse Ox O2 Delivery O2 Flow Rate FiO2 10/05/17 21:59 55 98 10/05/17 20:00 36.8 62 18 123/85 (98) 97 Room Air 10/05/17 20:00 Room Air 10/05/17 16:00 Room Air 10/05/17 15:25 36.6 60 18 119/59 (79) 96 Room Air 10/05/17 14:30 36.9 61 16 143/93 (110) 95 Room Air 10/05/17 13:35 57 20 123/71 (88) 95 Room Air 10/05/17 12:19 56 18 115/65 (82) 97 Room Air 10/05/17 11:30 58 18 151/80 (103) 97 Room Air 10/05/17 10:53 55 20 138/83 (101) 95 Room Air 10/05/17 10:30 51 18 123/69 (87) 98 Room Air 10/05/17 10:14 51 18 133/73 (93) 97 Room Air 10/05/17 10:00 48 20 117/70 (86) 97 Room Air 10/05/17 09:45 49 16 125/77 (93) 97 Room Air 10/05/17 09:30 36.5 62 18 127/71 (89) 98 Room Air 10/05/17 09:26 52 17 134/73 (93) 100 Room Air 10/05/17 09:21 49 16 125/76 (92) 99 Room Air 10/05/17 09:16 50 16 141/78 (99) 98 Room Air 10/05/17 08:00 Room Air 10/05/17 07:43 62 10/05/17 07:02 36.4 51 18 135/79 (97) 97 CPAP 10/05/17 03:38 36.5 51 18 108/66 (80) 98 Room Air 10/04/17 23:52 36.9 51 15 118/68 (85) 96 Room Air Physical Exam General Appearance: WD/WN, no apparent distress Eyes: normal inspection ENT: normal ENT inspection Neck: supple Respiratory/Chest: chest non-tender, lungs clear, normal breath sounds Cardiovascular: regular rate, rhythm, no edema Abdomen: normal bowel sounds, non tender, soft Extremities: normal range of motion Skin: normal color Lymphatic: no adenopathy Laboratory Results Last 24 Hours Test 10/04/17 23:20 10/05/17 03:53 10/05/17 07:32 10/05/17 08:39 Activated Partial Thromboplast Time 58.4 SECONDS 56.6 SECONDS Partial Thromboplastin Ratio 2.2 2.2 Troponin I 0.883 ng/ml Triglycerides Level 89 mg/dl Cholesterol Level 98 mg/dl HDL Cholesterol 34 mg/dl LDL Cholesterol, Calculated 46 mg/dl VLDL Cholesterol, Calculated 18 mg/dl Cholesterol/HDL Ratio 2.9 Bedside Glucose 161 mg/dl Kaolin Activated Coagulation Time 175 SECONDS Test 10/05/17 08:57 10/05/17 11:28 10/05/17 16:20 10/05/17 20:16 Kaolin Activated Coagulation Time 213 SECONDS Bedside Glucose 213 mg/dl 135 mg/dl 129 mg/dl Assessment and Plan 1. Non-ST elevation myocardial infarction. Patient admitted due to elevated troponin. Patient had cardiac cath today with stent place. Findings from the cath. 1. Severe single vessel coronary artery disease - 95% late-proximal stenosis at bifurcation of 1st diagonal. 2. Borderline intracardiac filling pressure 3. Successful PCI of proximal to mid LAD with single drug-eluting stent (3.5 x 23 Xience; post-dilated with 3.75 NC). 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 Coronary artery disease. Continue high intesnity stating such as rosuvastatin. In addition to this, would discontinue his anti-inflammatories outside of the Voltaren gel given the concern on inability for vasodilation with prostaglandin inhibition as related to NSAID use Will recommend Tylenol Arthritis instead as well as the topicals and then continue to titrate his home medications otherwise as appropriate. 3. Stress and anxiety. Continue his home meds 4. Carotid artery disease. He is status post endarterectomy. The treatments for his coronary disease will help with this as well. 5. Dyslipidemia, see above. We will check a lipid panel and change him over to Crestor 20, titrate as needed. 6. Type 2 diabetes. We will be holding his metformin in anticipation of the heart catheterization. We will utilize fingersticks supplemental insulin. Check an A1c. Of note, his last A1c was 6.7 in March. 7. Osteoarthritis. See above. Will discontinue his Naprosyn and utilize Tylenol and Voltaren gel instead. 8. Deep venous thrombosis prophylaxis: was on heparin drip. Patient is ambulating. will hold off for now. Likely discharge in AM. 9. Vitamin D deficiency. The last levels I have on record over several years ago. This probably is followed by his PCP and they bring this up to bring it to attention in case he is due for followup on this as an outpatient.
[2017-10-06 00:21] VITALS: BP 136/73; PULSE 51; TEMP 36.7; O2SAT 98
[2017-10-06 04:32] VITALS: BP 125/73; PULSE 56; TEMP 36.8; O2SAT 98
[2017-10-06 06:53] LABS: HEMATOCRIT 39.8 % (42-52); HEMOGLOBIN 13.4 g/dL (14.0-18.0); MEAN CELL VOLUME 89.4 fL (80-100); MEAN CORPUSCULAR HEMOGLOBIN 30.1 pg (25-34); MEAN CORPUSCULAR HGB CONC 33.7 g/dl (32-36); MEAN PLATELET VOLUME 9.5 fL (7.4-10.4); PLATELET COUNT 200 K/uL (130-400); RED CELL DISTRIBUTION WIDTH CV 13.2 % (11.5-14.5); RED CELL DISTRIBUTION WIDTH SD 43.1 fL (36.4-46.3)
[2017-10-06] MEDS: DICLOFENAC SOD 1% GEL 100 GM TUBE EXT PRN (07:02)
[2017-10-06 07:05] LABS: PTT PATIENT 25.3 SECONDS (21.0-31.0)
[2017-10-06] MEDS: INSULIN ASPART 100 UNITS/ML 3 ML PEN SC SCH (07:57)
[2017-10-06] MEDS: CHOLECALCIFEROL 1000 INTER.UNIT TAB PO SCH (07:58)
[2017-10-06] MEDS: OXYCODONE/ACETAMINOPHEN 5-325 TAB PO PRN (07:58)
[2017-10-06] MEDS: OMEGA-3 (PURIFIED FISH OIL) 1 GM CAP PO SCH (07:58)
[2017-10-06] MEDS: METOPROLOL TARTRATE 25 MG TAB PO SCH (07:59)
[2017-10-06] MEDS: ASPIRIN 81 MG ECTAB PO SCH (07:59)
[2017-10-06] MEDS: MULTIVITAMIN TAB PO SCH (07:59)
[2017-10-06] MEDS: AMLODIPINE BESYLATE 5 MG TAB PO SCH (07:59)
[2017-10-06] MEDS: CYANOCOBALAMIN 100 MCG TAB (VIT B-12) PO SCH (07:59)
[2017-10-06 08:27] VITALS: PULSE 66
[2017-10-06 09:54] VITALS: BP 125/73; PULSE 66; TEMP 36.8; O2SAT 98
--- NOTE | 2017-10-06 10:36 | Discharge Summary ---
Discharge Summary Date of Service Oct 06, 2017. Discharge Summary Admission Date: Oct 04, 2017 at 15:36 Discharge Date: Oct 06, 2017 Discharge Disposition: Home Principal Diagnosis: NSTEMI Immunizations: Have You Had Influenza Vaccine: Yes History of Tetanus Vaccine?: Unknown History of Pneumococcal: No History of Hepatitis B Vaccine: No Medication Reconciliation New Medications: Acetaminophen (Mapap) 325 Mg Tab 650 MG PO Q4H PRN for Pain or Fever for 30 Days, #240 TAB Rosuvastatin Calcium (Crestor) 20 Mg Tab 20 MG PO QPM for 90 Days, #90 TAB 1 Refill Continued Medications: Alprazolam (Alprazolam) 0.5 Mg Tab 0.5 MG PO BID PRN for Anxiety INSTRUCTED MAY TAKE AM SURGERY SIP WATER Amlodipine Besylate (Amlodipine Besylate) 10 Mg Tab 10 MG PO QAM INSTRUCTED TO TAKE AM SURGERY SIP WATER Aspirin (Aspirin Ec) 81 Mg Tab 81 MG PO QAM PER PT WAS INSTRUCTED TO CONTINUE TAKING -TAKE AM SURGERY SIP WATER Cholecalciferol (Vitamin D) 1,000 Inter.unit Tab 1000 INTER.UNIT PO QAM, 0 Refills Clopidogrel Bisulfate (Plavix) 75 Mg Tab 75 MG PO QPM PER PT WAS INSTRUCTED TO CONTINUE TAKING Cyanocobalamin (Vitamin B-12) Unknown Strength Tab 100 MCG PO QAM, TAB Cyclobenzaprine Hcl (Flexeril) 10 Mg Tab 10 MG PO BID PRN for spasm, #21 TAB Diclofenac Sod (Voltaren 1% Top Gel) Gel 1 APPLN TOP BID PRN for Joint Pain INSTRUCTED TO STOP 04/15/15 Ezetimibe (Zetia) 10 Mg Tab 10 MG PO QPM Losartan Potassium (Cozaar) 100 Mg Tab 100 MG PO QAM INSTRUCTED TO HOLD AM SURGERY Metformin Hcl (Glucophage) 1,000 Mg Tab 1000 MG PO BID INSTRUCTED TO HOLD 48 HRS PRIOR TO SURGERY Metoprolol Tartrate (Lopressor) 25 Mg Tab 25 MG PO BID INSTRUCTED TO TAKE AM SURGERY SIP WATER Multivitamin (Multivitamin) Tab 1 TAB PO BID, 0 Refills Nitroglycerin (Nitrostat) 0.4 Mg Tab 0.4 MG UT UD PRN for Chest Pain, 0 Refills Newton-3 Fatty Acids (Newton 3) 1 Cap Cap 1 CAP PO QAM LOVAZA-INSTRUCTED TO STOP 04/15/15 Newton-3 Fatty Acids (Newton 3) 1 Cap Cap 2 CAP PO QPM LOVAZA-INSTRUCTED TO STOP 04/15/15 Oxycodone/Acetaminophen 5MG/325MG (Percocet 5MG/325MG) Tab 1 TABLET PO UD PRN for Pain, TAB INSTRUCTED MAY TAKE UP TO 4 HRS PRIOR TO SURGERY SIP WATER Tamsulosin Hcl (Flomax) 0.4 Mg Cap 0.4 MG PO HS PRN for PRN, CAP Turmeric (Curcuma Longa) (Turmeric) Unknown Strength Cap 500 MG PO BID PER PT STOPPED TAKING 04/14/15 Discontinued Medications: Simvastatin (Simvastatin) 40 Mg Tab 40 MG PO QPM Valacyclovir (Valtrex) 500 Mg Tab 2000 MG PO Q12 PRN for PRN, TAB PER PT STIOPPED TAKING 04/14/15-FOR COLD SORE BREAKOUTS PRN Discharge Exam Review of Systems Constitutional: No fever Eyes: No worsening of vision ENT: No hearing loss Respiratory: No cough Cardiac: No chest pain, No orthopnea Abdomen: No pain Musculoskeletal: No joint pain Neurologic: No memory loss Heme: No abnormal bleeding/bruising Endo: No fatigue Skin: No rash All Other Systems: Reviewed and Negative Physical Exam General Appearance: WD/WN, no apparent distress Eyes: normal inspection ENT: normal ENT inspection Neck: supple Respiratory/Chest: chest non-tender, lungs clear, normal breath sounds Cardiovascular: regular rate, rhythm, no edema Abdomen: normal bowel sounds, non tender, soft Extremities: normal range of motion Skin: normal color Lymphatic: no adenopathy Hospital Course 1. Non-ST elevation myocardial infarction. Patient admitted due to elevated troponin. Patient had cardiac cath today with stent place. Findings from the cath. 1. Severe single vessel coronary artery disease - 95% late-proximal stenosis at bifurcation of 1st diagonal. 2. Borderline intracardiac filling pressure 3. Successful PCI of proximal to mid LAD with single drug-eluting stent (3.5 x 23 Xience; post-dilated with 3.75 NC). 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 2. Coronary artery disease. Continue high intensity stating such as rosuvastatin. In addition to this, would discontinue his anti-inflammatories outside of the Voltaren gel given the concern on inability for vasodilation with prostaglandin inhibition as related to NSAID use Will recommend Tylenol Arthritis instead as well as the topicals and then continue to titrate his home medications otherwise as appropriate. 3. Stress and anxiety. Continue his home meds 4. Carotid artery disease. He is status post endarterectomy. The treatments for his coronary disease will help with this as well. 5. Dyslipidemia, see above. We will check a lipid panel and change him over to Crestor 20, titrate as needed. will defer this to his outpatient provider 6. Type 2 diabetes. We will be holding his metformin in anticipation of the heart catheterization. We will utilize fingersticks supplemental insulin. Check an A1c. Of note, his last A1c was 6.7 in March. 7. Osteoarthritis. See above. Will discontinue his Naprosyn and utilize Tylenol and Voltaren gel instead. 8. Deep venous thrombosis prophylaxis: was on heparin drip. However this was stopped close to discharge as patient was ambulating. 9. Vitamin D deficiency. The last levels I have on record over several years ago. This probably is followed by his PCP and they bring this up to bring it to attention in case he is due for followup on this as an outpatient. Total Time Spent: Greater than 30 minutes This includes examination of the patient, discharge planning, medication reconciliation, and communication with other providers. Discharge Instructions Please refer to the electronic Patient Visit Report (Discharge Instructions) for additional information. Follow-Up F/U with PCP in 1-2 week F/U with cardiology within the month Restart metformin on Wednesday. Additional Copies To Rohan Prakash M.D.
--- NOTE | 2017-10-06 10:37 | PROGRESS NOTE ---
DATE: 10/06/2017 CARDIOLOGY PROGRESS NOTE SUBJECTIVE: The patient was seen by me this morning in his telemetry room. He is feeling very well. He underwent cardiac catheterization and percutaneous coronary intervention to his LAD yesterday. This was performed via a right radial approach by Dr. Socrates Weems. The patient reports no pain at his right radial artery catheterization site. No right hand pain. Nursing staff did inform me that yesterday when he still had the TR band on, he did develop bleeding at the site. This occurred after he had not followed instructions regarding limiting movement in his wrist and hand post-catheterization. Manual pressure was held and a small hematoma was reduced. In regards to his cardiac status, he is feeling very well. He has walked in the earl several times. He denies any anginal-type chest tightness. He denies any dyspnea walking in the earl. Overall, he feels better than prior to admission. No orthopnea or PND overnight. No palpitations, lightheadedness, or syncope. No abdominal pain or nausea. No cerebrovascular or peripheral vascular complaints. No bleeding complaints. No leg pain or swelling. He does have chronic paresthesias in his feet. CURRENT MEDICATIONS: Aspirin 81 mg daily, vitamin D 1000 units daily, amlodipine 10 mg daily, vitamin B12 100 mcg daily, omega 3 fish oil capsules 1 gram daily, clopidogrel 75 mg daily, Zetia 10 mg daily, metoprolol tartrate 25 mg p.o. b.i.d., multivitamin 1 daily, fish oil 2 grams q.p.m., rosuvastatin 20 mg q.p.m. The patient's home medications included losartan 100 mg daily and metformin 1000 mg b.i.d. Prior to admission, the patient had been on simvastatin 40 mg daily. This has been switched during the admission to rosuvastatin 20 mg daily. ALLERGIES AND ADVERSE DRUG REACTIONS: NABILA INHIBITORS, PENICILLIN, NIACIN. Monitor history since admission reveals sinus rhythm and sinus bradycardia. OBJECTIVE: VITAL SIGNS: This morning with oral temperature 36.8, pulse 56, blood pressure 125/73, pulse oximetry room air 98%. GENERAL APPEARANCE: Shows him to be in no distress. NECK: No jugular venous distention. LUNGS: Normal respiratory effort. Clear. No rales or wheezes. HEART: Regular rate and rhythm. S1, S2 normal. No S3, S4. No murmur or rub. ABDOMEN: Soft and nontender. No palpable masses or organomegaly. No bruits. EXTREMITIES: Right radial catheterization site without bleeding or hematoma. No ecchymoses noted. No evidence for arterial insufficiency, right hand. Right radial pulse strongly palpable. No cyanosis or clubbing. No pretibial edema. NEUROLOGIC: Alert and oriented x3. Motor grossly intact. PSYCHIATRIC: Affect is normal. Glucose this morning is 150. CBC this morning with WBC 5.70, hemoglobin 13.4, hematocrit 39.8, platelet count 200. Electrocardiogram not performed today. Echocardiogram performed yesterday with mild LVH, normal LV systolic function and wall motion, mild mitral stenosis, borderline aortic root dilatation, normal right ventricular size and systolic function, annuloplasty ring in the mitral valve position, no significant mitral regurgitation, no significant tricuspid regurgitation. Cardiac catheterization performed yesterday by Dr. Socrates Weems revealed 20% [id number] left main stenosis, large caliber LAD with a 95% proximal stenosis. Hazy appearance at the site of the stenosis is involved the origin of the first diagonal which had a 40-50% ostial stenosis. Mid LAD with 30-40% stenosis. A dominant right coronary artery with widely patent proximal mid segment stent. 30% mid stenosis just distal to proximal stent. Left circumflex with a large obtuse marginal artery. No significant disease in the left circumflex. The patient underwent intervention to the LAD, proximal LAD stenosis. Deployment of 3.5 x 23 mm Xience drug-eluting stent. proximal LAD. Ostium of diagonal was dilated with 2.5 mm balloon. Following procedure, VONNIE 3 flow in all vessels. Minimal ostial diagonal stenosis. No complications. ASSESSMENT: 1. Status post small non-ST segment elevation myocardial infarction. One hour of chest tightness on the evening of 10/03/2017. Electrocardiogram revealed anterolateral ST depressions and T inversions consistent with ischemia. Peak troponin I 1.020. Left ventricular wall motion normal on echo. Cardiac catheterization was severe proximal left anterior descending stenosis. Successful intervention to the left anterior descending stenosis with deployment of a large-caliber drug eluting stent. No cardiac complications post-percutaneous coronary intervention. No significant vascular complications. He had some bleeding and hematoma while he still had the TR band in place. This was reduced by the nursing staff. No evidence of any bleeding or hematoma on exam today. Right radial pulse strongly palpable. 2. Hypertension, well controlled this morning. Of note, is that the patient is not receiving his losartan. He was on losartan 100 mg daily, preadmission 3. Diabetes mellitus. The patient was on metformin 1000 mg b.i.d. prior to admission. 4. No signs or symptoms of heart failure or arrhythmia. 5. Dyslipidemia. The patient was on simvastatin 40 mg daily preadmission. With this, he did have a calculated LDL of 46 on admission. However, despite this LDL control, he developed the severe proximal left anterior descending stenosis. He has been switched to moderate intensity rosuvastatin. This is consistent with current guidelines. 6. No bleeding complaints. He has been on long-term antiplatelet therapy with aspirin and clopidogrel. RECOMMENDATIONS: 1. Discharge patient home today. 2. Resume metformin and losartan on discharge. 3. The patient has a followup visit scheduled with me in 2 weeks. 4. Arrange medical followup with his primary care provider, Dr. Rohan Prakash. 5. The patient was given instructions by me on care of his right radial catheterization site. 6. We will refer patient to cardiac rehabilitation. TIANA
[2017-10-06] MEDS ORDERED: ACET-1047 PO (10:39)
[2017-10-06] MEDS ORDERED: CRS20 PO (10:39)
--- NOTE | 2017-10-06 10:40 | Discharge Instructions ---
Discharge Instructions Date of Service Oct 06, 2017. Admission Reason for Admission: Nstemi ( Non-St Elevated Myocardial Infarction) Discharge Discharge Diagnosis / Problem: NSTEMI Discharge Goals Goal(s): Decrease discomfort, Improve function Activity Recommendations Activity Limitations: resume your previous activity . Instructions / Follow-Up Instructions / Follow-Up F/U with PCP in 1-2 week F/U with cardiology within the month Restart metformin on Wednesday. Current Hospital Diet Patient's current hospital diet: AHA Diet (Heart Healthy), Low Sodium Diet (2gm Na), Diabetes Type 2 Diet Discharge Diet Recommended Diet: AHA Diet (Heart Healthy) Pending Studies Studies pending at discharge: no Laboratory Results Hemoglobin A1c Test 10/04/17 14:08 Range/Units Estimated Average Glucose 171 mg/dl Hemoglobin A1c 7.6 H 4.5-5.6 % Lipid Panel Test 10/05/17 03:53 Range/Units Triglycerides Level 89 0-150 mg/dl Cholesterol Level 98 0-200 mg/dl HDL Cholesterol 34 mg/dl Cholesterol/HDL Ratio 2.9 LDL Cholesterol, Calculated 46 mg/dl Medical Emergencies . Who to Call and When: Medical Emergencies: If at any time you feel your situation is an emergency, please call 911 immediately. . Non-Emergent Contact Non-Emergency issues call your: Primary Care Provider Call Non-Emergent contact if: you have any medication questions . . "Provider Documentation" section prepared by Saqib Anderson. .
== END 2017-10-06 11:20 | disposition home or self-care (01) | DRG 247 ==
LOC: EDBD 12:48 → C.EDC 12:49 → C.2E 15:36 → ENRESERV 16:02
PROVIDERS: ADMIT Family Medicine; ATTEND Internal Medicine Sports Medicine
PROC: 4A023N7 Measurement of Cardiac Sampling and Pressure, Left Heart, Percutaneous Approach (ICD-10-PCS; principal; 2017-10-05 08:11)
PROC: B2111ZZ Fluoroscopy of Multiple Coronary Arteries using Low Osmolar Contrast (ICD-10-PCS; principal; 2017-10-05 08:11)
PROC: 027034Z Dilation of Coronary Artery, One Artery with Drug-eluting Intraluminal Device, Percutaneous Approach (ICD-10-PCS; principal; 2017-10-05 08:11)
DX: I21.4 Non-ST elevation (NSTEMI) myocardial infarction (principal); I25.2 Old myocardial infarction; I25.10 Atherosclerotic heart disease of native coronary artery without angina pectoris; E11.9 Type 2 diabetes mellitus without complications; I10 Essential (primary) hypertension; Z95.5 Presence of coronary angioplasty implant and graft; Z87.891 Personal history of nicotine dependence; Z79.82 Long term (current) use of aspirin; Z88.0 Allergy status to penicillin; Z88.8 Allergy status to other drugs, medicaments and biological substances; E78.5 Hyperlipidemia, unspecified; I48.0 Paroxysmal atrial fibrillation; F41.9 Anxiety disorder, unspecified; M19.90 Unspecified osteoarthritis, unspecified site; E55.9 Vitamin D deficiency, unspecified